=== PATIENT | female | born 1955 | race African-American/Black ===

== ENCOUNTER 2021-12-30 10:39 | Emergency (ER) | payer MEDICARE ==
[2021-12-30 11:33] VITALS: RESP 18
--- NOTE | 2021-12-30 11:38 | ED ---
Abdominal Pain HPI - General Chief Complaint: Abdominal Pain Stated Complaint: constipation Time Seen by Provider: 12/30/21 10:52 Source: patient, family, RN notes reviewed Mode of arrival: ambulatory Limitations: no limitations - History of Present Illness Initial Comments: This is a 66-year-old female who presents to the emergency department for steven hooks. States that she has not had a bowel movement in 2 weeks and is passing little to no gas. This has never happened to her before. She has mild nausea but no vomiting. States that she feels very bloated. Abdominal pain is not severe at this time. She has been trying vfyk-phr-[id number] MiraLAX, prune juice, magnesium citrate, and other remedies with no relief. She is currently being treated at [facility] for lung cancer. She receives chemotherapy every 21 days, and is scheduled to receive it in another 2 weeks. Denies any fevers, chills, sore throat, cough, dyspnea, chest pain, palpitations, vomiting, diarrhea, back pain, or headaches. MD Complaint: abdominal pain, other (constipation) Onset/Timin -: week(s) Associated Symptoms: nausea - Related Data Previous Rx's Medication Instructions Recorded Lactulose 20 gm PO Q6H PRN #8 oz 12/30/21 Na Phos,M-B/Na Phos,Di-Ba [Fleet 133 ml RECTAL ONCE PRN #113 ml 12/30/21 Adult] Allergies Allergy/AdvReac Type Severity Reaction Status Date / Time No Known Allergies Allergy Verified 12/30/21 10:51 Review of Systems ROS Statement: Those systems with pertinent positive or pertinent negative responses have been documented in the HPI. ROS Other: All systems not noted in ROS Statement are negative. Past Medical History Additional Past Medical History / Comment(s): Lung CA History of Any Multi-Drug Resistant Organisms: None Reported Past Surgical History: No Surgical Hx Reported Past Psychological History: No Psychological Hx Reported Smoking Status: Current every day smoker Past Alcohol Use History: None Reported Past Drug Use History: None Reported General Exam Limitations: no limitations General appearance: alert, in no apparent distress Head exam: Present: atraumatic, normocephalic, normal inspection Respiratory exam: Present: normal lung sounds bilaterally. Absent: respiratory distress, wheezes, rales, rhonchi, stridor Cardiovascular Exam: Present: regular rate, normal rhythm, normal heart sounds. Absent: systolic murmur, diastolic murmur, rubs, gallop, clicks GI/Abdominal exam: Present: distended, hypoactive bowel sounds. Absent: tenderness Neurological exam: Present: alert, oriented X3, CN II-XII intact Psychiatric exam: Present: normal affect, normal mood Skin exam: Present: warm, dry, intact, normal color. Absent: rash Course Vital Signs 12/30/21 12/30/21 12/30/21 10:48 11:32 15:00 Temperature 97.7 F 98.0 F Pulse Rate 101 H 88 80 Respiratory 20 18 18 Rate Blood Pressure 95/63 125/51 130/62 O2 Sat by Pulse 99 100 98 Oximetry Medical Decision Making - Medical Decision Making This is a 66-year-old female who presents to the emergency department for constipation. Lab work was nonactionable. Computed tomography scan of the abdomen and pelvis revealed no significant contributing factors related to the patient's symptoms. It does reveal possible progression of metastatic disease. Mild to moderate stool burden noted. She was given a dose of lactulose and a Fleet enema in the emergency department with no relief. Prescription for lactulose and a Fleet enema were sent to the patient's pharmacy. Also instructed her to remain well-hydrated and add a prebiotic and probiotic to her diet to further help the problem. She should also avoid any constipating foods that may be a contributing factor to her symptoms. She'll follow up with her primary care provider to further discuss management for this issue. Return precautions reviewed in depth, the patient is instructed to return to the emergency department with any new, worsening, or concerning symptoms. Patient verbalized understanding. This case was discussed in detail with the attending ED physician. Presentation, findings, and treatment plan discussed in detail as well. - Lab Data Result diagrams: 12/30/21 11:26 12/30/21 11:26 Lab Results 12/30/21 12/30/21 Range/Units 11: 11:26 WBC 1.8 L (3.8-10.6) k/uL RBC 2.81 L (3.80-5.40) m/uL Hgb 8.4 L (11.4-16.0) gm/dL Hct 25.4 L (34.0-46.0) % MCV 90.4 (80.0-100.0) fL MCH 29.9 (25.0-35.0) pg MCHC 33.1 (31.0-37.0) g/dL RDW 22.1 H (11.5-15.5) % Plt Count 124 L (150-450) k/uL MPV 8.9 Neutrophils % (Manual) 40 % Lymphocytes % (Manual) 46 % Monocytes % (Manual) 12 % Eosinophils % (Manual) 2 % Basophils % (Manual) 1 % Neutrophils # (Manual) 0.72 L (1.3-7.7) k/uL Lymphocytes # (Manual) 0.83 L (1.0-4.8) k/uL Monocytes # (Manual) 0.22 (0-1.0) k/uL Eosinophils # (Manual) 0.04 (0-0.7) k/uL Basophils # (Manual) 0.02 (0-0.2) k/uL Nucleated RBCs 2 H (0-0) /100 WBC Manual Slide Review Performed Polychromasia Present Hypochromasia Moderate Poikilocytosis Slight Anisocytosis Moderate Macrocytosis Slight Sodium 141 (137-145) mmol/L Potassium 3.5 (3.5-5.1) mmol/L Chloride 104 (98-107) mmol/L Carbon Dioxide 22 (22-30) mmol/L Anion Gap 15 mmol/L BUN 19 H (7-17) mg/dL Creatinine 0.76 (0.52-1.04) mg/dL Est GFR (CKD-EPI)AfAm >90 (>60 ml/min/1.73 sqM) Est GFR (CKD-EPI)NonAf 83 (>60 ml/min/1.73 sqM) Glucose 161 H (74-99) mg/dL Calcium 8.9 (8.4-10.2) mg/dL Magnesium 1.8 (1.6-2.3) mg/dL Total Bilirubin 0.6 (0.2-1.3) mg/dL AST 31 (14-36) U/L ALT 32 (4-34) U/L Alkaline Phosphatase 112 (38-126) U/L Total Protein 6.5 (6.3-8.2) g/dL Albumin 4.1 (3.5-5.0) g/dL Amylase 40 (30-110) U/L Lipase 34 (23-300) U/L TSH 0.638 (0.465-4.680) mIU/L - Radiology Data Radiology results: report reviewed, image reviewed Disposition Clinical Impression: Constipation Disposition: HOME SELF-CARE Instructions (If sedation given, give patient instructions): Constipation (ED), Fleet Enema (ED) Additional Instructions: Return to the emergency department with any new, worsening, or concerning symptoms. Try taking the lactulose and the enema as prescribed for further treatment of the constipation. You can also continue with [id number] methods. Make sure that you are remaining well-hydrated. Try starting a pre- biotic and probiotic supplement to further help your symptoms. Follow up with your primary care provider in 1-2 days. Prescriptions: Na Phos,M-B/Na Phos,Di-Ba [Fleet Adult] 133 ml RECTAL ONCE PRN #113 ml PRN Reason: Constipation Lactulose 20 gm PO Q6H PRN #8 oz PRN Reason: Constipation Is patient prescribed a controlled substance at d/c from ED?: No Referrals: None,Stated [REFERRING] - 1-2 days
[2021-12-30 12:06] LABS: Anisocytosis Moderate; HCT 25.4 % (34.0-46.0); HGB 8.4 gm/dL (11.4-16.0); Hypochromasia Moderate; MCH 29.9 pg (25.0-35.0); MCHC 33.1 g/dL (31.0-37.0); MCV 90.4 fL (80.0-100.0); Macrocytosis Slight; Mean Platelet Volume 8.9; Platelet Count 124 k/uL (150-450); Poikilocytosis Slight; RBC 2.81 m/uL (3.80-5.40); RDW 22.1 % (11.5-15.5); WBC 1.8 k/uL (3.8-10.6)
[2021-12-30 12:14] LABS: ALT 32 U/L (4-34); AST 31 U/L (14-36); African American GFR (CKD) >90 (>60 ml/min/1.73 sqM); Albumin 4.1 g/dL (3.5-5.0); Alkaline Phosphatase 112 U/L (38-126); Amylase 40 U/L (30-110); Anion Gap 15 mmol/L; Blood Urea Nitrogen 19 mg/dL (7-17); Calcium 8.9 mg/dL (8.4-10.2); Carbon Dioxide 22 mmol/L (22-30); Chloride 104 mmol/L (98-107); Glucose 161 mg/dL (74-99); Lipase 34 U/L (23-300); Magnesium 1.8 mg/dL (1.6-2.3); Non-African American GFR(CKD) 83 (>60 ml/min/1.73 sqM); Potassium 3.5 mmol/L (3.5-5.1); Sodium 141 mmol/L (137-145); Total Bilirubin 0.6 mg/dL (0.2-1.3); Total Protein 6.5 g/dL (6.3-8.2)
[2021-12-30] MEDS ORDERED: KETOROLAC 15 MG/ML 1 ML VIAL IVP STA (12:41)
[2021-12-30] MEDS ORDERED: SODIUM CHLORIDE 0.9% 1,000 ML IV STA (12:41)
--- NOTE | 2021-12-30 13:06 | CT ---
EXAMINATION TYPE: CT abdomen pelvis w con DATE OF EXAM: 12/30/2021 COMPARISON: NONE HISTORY: 66-year-old female Stomach pains, abdominal distention and constipation TECHNIQUE: Contiguous axial scanning of the abdomen and pelvis following administration of 100 ml Iso fred 300 IV contrast. Delayed images through the kidneys and coronal/sagittal reconstructions perform ed. CT DLP: 1034.6 mGycm Automated exposure control for dose reduction was used. FINDINGS: Heart normal size with trace pericardial fluid measuring 4 mm thick. Dependent atelectasis noted. No pleural effusion. Liver normal size. There are 3 lesions, anterior right hepatic dome 3.0 cm, anterior left liver lobe 1.1 cm, and inferior right liver lobe measuring 1.4 cm. Portal venous. No biliary ductal dilatation. Gallbladder, left kidney, spleen, and pancreas within normal limits. 2.3 cm cortical cyst lateral upper pole right kidney. There is diffuse nodularity of the adrenal glands, left greater than right. Discrete nodules measure up to 2.0 cm. No dilated small bowel, free fluid, or free air. Some prominent fluid-filled small bowel loops in the mid to lower abdomen and pelvis. No mesenteric or retroperitoneal lymphadenopathy. Normal appendix. Mild to moderate stool burden. No pericolic inflammatory change. Mild to moderate atherosclerotic plaque and calcifications distal abdominal aorta and common iliac ar teries. Vascular calcification at the left hilum. Bladder is collapsed. Uterus anteverted. There may be a posterior fundal fibroid measuring up to 3.2 cm. Possible additional anterior fundus/body fibroid measuring 2.6 cm containing some calcifications. Both ovaries are visualized. No abnormal fluid collection in the pelvis or pelvic lymphadenopathy se en. Bones: Mild to moderate degenerative change of both hips. Facet arthropathy mid to lower lumbar spine . IMPRESSION: 1. THREE LESIONS WITHIN THE LIVER MEASURING UP TO 3.0 CM ARE INDETERMINATE. METASTATIC DISEASE IS NOT EXCLUDED AT THIS TIME. CLINICAL CORRELATION AND LIVER MRI EVALUATION RECOMMENDED FOR FURTHER CHARACT ERIZATION. 2. EXTENSIVE NODULARITY OF THE LEFT GREATER THAN RIGHT ADRENAL GLANDS. DISCRETE NODULES MEASURING UP TO 2.0 CM. AGAIN, METASTATIC DISEASE SHOULD BE EXCLUDED. 3. LOBULATIONS FROM THE ANTERIOR AND POSTERIOR UTERUS, SUSPECTED TO REPRESENT FOCAL FIBROIDS MEASURIN G 2.6 AND 3.2 CM, RESPECTIVELY. PELVIC ULTRASOUND CAN BETTER CHARACTERIZE.
[2021-12-30 13:42] LABS: Basophils # (M) 0.02 k/uL (0-0.2); Eosinophils # (M) 0.04 k/uL (0-0.7); Lymphocytes # (M) 0.83 k/uL (1.0-4.8); Monocytes # (M) 0.22 k/uL (0-1.0); Neutrophils # (M) 0.72 k/uL (1.3-7.7); Neutrophils % (M) 40 %; Nucleated Red Blood Cells 2 /100 WBC (0-0); Total Cells Counted 200
[2021-12-30 13:43] LABS: Polychromasia Present
[2021-12-30] MEDS ORDERED: NA PHOS,M-B/NA PHOS,DI-BA 133 ML ENEMA RECTAL STA (13:48)
[2021-12-30] MEDS ORDERED: LACTULOSE 20 GM/30 ML CUP PO ONE (13:48)
[2021-12-30 15:02] VITALS: BP 130/62; PULSE 80; TEMP 98
== END 2021-12-30 15:05 | disposition home or self-care (01) ==
LOC: EC 10:39
DX: K59.00 Constipation, unspecified (principal); F17.200 Nicotine dependence, unspecified, uncomplicated; Z85.118 Personal history of other malignant neoplasm of bronchus and lung
CPT/HCPCS: 36415; 80053; 84443; 82150; 83690; 83735; 85025; 74177; 99284; 96374; 96361; J1885; Q9967